=== PATIENT | male | born 1950 | race American Indian/Alaskan Native ===

== ENCOUNTER 2018-10-13 19:24 | Observation (INO) | payer MEDICARE ==
--- NOTE | 2018-10-13 19:37 | Event Note ---
ED Screening Note Date of service: 10/13/18 Time: 19:33 ED Screening Note: 68 y/o male comes in for 1 week of chest pain. Hx/o DM HTN Patient to be seen in the Main. This initial assessment/diagnostic orders/clinical plan/treatment(s) is/are subject to change based on patients health status, clinical progression and re- assessment by fellow clinical providers in the ED. Further treatment and workup at subsequent clinical providers discretion. Patient/guardian urged not to elope from the ED as their condition may be serious if not clinically assessed and managed. Initial orders include:
[2018-10-13 20:32] LABS: Basophils # (Auto) 0.1 K/mm3 (0.0-0.1); Eosinophils % (Auto) 0.7 % (0.0-4.3); Hematocrit 29.5 % (35.5-45.6); Lymphocytes % (Auto) 29.7 % (13.4-35.0); Mean Corpuscular HGB Conc 34 % (32-34); Mean Corpuscular Volume 91 fl (84-94); Monocytes # (Auto) 0.5 K/mm3 (0.0-0.8); Monocytes % (Auto) 7.3 % (0.0-7.3); Platelet Count 374 K/mm3 (140-440); Red Blood Count 3.24 M/mm3 (3.65-5.03); Red Cell Distribution Width 17.5 % (13.2-15.2)
--- NOTE | 2018-10-13 20:36 | Emergency Department Report ---
ED Chest Pain HPI - General Chief Complaint: Chest Pain Stated Complaint: SHOULDER PAIN Time Seen by Provider: 10/13/18 20:28 Source: patient, EMS Mode of arrival: Wheelchair Limitations: Physical Limitation - History of Present Illness Initial Comments: Patient is a 68-year-old male that presents emergency with complaints of chest pain and left shoulder pain. Patient states that his shoulder pain started one week ago and is in the left shoulder radiates down his left arm. Patient states 3 days ago his chest pain started. Patient states his chest pain and shoulder better with rest and worse with exertion and movement. Patient states the pain occurs chest and left shoulder are tender to 10. Patient states for his left shoulder he saw his primary care 2 days ago and had an x-ray and only showed arthritis. Patient states he has had shortness of breath but is better since he is resting in bed.. Patient states he had dizziness and nausea while sitting on the waiting room but that has resolved. Patient has a external fixator to the left lower extremity secondary to a fracture to the lower leg. MD Complaint: chest pain -: Sudden Onset: during rest Pain Location: substernal, left chest Pain Radiation: LUE Severity: severe Severity scale (0 -10): 10 Quality: sharp Consistency: constant Improves With: rest Worsens With: exertion, palpation, movement re: nausea, dyspnea. denies: vomting, diaphoresis, sense of impending doom Other Symptoms: denies: cough, fever, syncope, rash, acid taste in mouth, leg swelling, palpitations, burping Treatments Prior to Arrival: none Aspirin use within the Past 7 Days: (0) No - Related Data On Oral Contraceptives: No Allergies Allergy/AdvReac Type Severity Reaction Status Date / Time sulfamethoxazole Allergy Itching Verified 10/13/18 19:30 [From Bactrim] trimethoprim [From Bactrim] Allergy Itching Verified 10/13/18 19:30 Heart Score - HEART Score History: Moderately suspicious EKG: Normal Age: > 65 Risk factors: 1-2 risk factors Troponin: < normal limit HEART Score: 4 ED Review of Systems ROS: Stated complaint: SHOULDER PAIN Other details as noted in HPI Constitutional: denies: chills, fever Eyes: denies: eye pain, eye discharge, vision change ENT: denies: ear pain, throat pain Respiratory: shortness of breath. denies: cough, wheezing Cardiovascular: chest pain. denies: palpitations Endocrine: no symptoms reported Gastrointestinal: denies: abdominal pain, nausea, diarrhea Genitourinary: denies: urgency, dysuria Musculoskeletal: denies: back pain, joint swelling, arthralgia Skin: denies: rash, lesions Neurological: denies: headache, weakness, paresthesias Psychiatric: denies: anxiety, depression Hematological/Lymphatic: denies: easy bleeding, easy bruising ED Past Medical Hx - Past Medical History Previous Medical History?: Yes Hx Hypertension: Yes Hx Diabetes: Yes Hx Renal Disease: Yes - Surgical History Past Surgical History?: Yes Additional Surgical History: left lower leg, neck - Family History Family history: no significant - Social History Smoking Status: Current Every Day Smoker Substance Use Type: None ED Physical Exam - General Limitations: Physical Limitation General appearance: alert, in no apparent distress - Head Head exam: Present: atraumatic, normocephalic - Eye Eye exam: Present: normal appearance - ENT ENT exam: Present: mucous membranes moist - Neck Neck exam: Present: normal inspection - Respiratory Respiratory exam: Present: normal lung sounds bilaterally. Absent: respiratory distress, chest wall tenderness - Cardiovascular Cardiovascular Exam: Present: regular rate, normal rhythm. Absent: systolic murmur, diastolic murmur, rubs, gallop - GI/Abdominal GI/Abdominal exam: Present: soft, normal bowel sounds - Rectal Rectal exam: Present: deferred - Extremities Exam Extremities exam: Present: normal inspection, tenderness (tenderness to palpation to left shoulder) - Back Exam Back exam: Present: normal inspection - Neurological Exam Neurological exam: Present: alert, oriented X3 - Psychiatric Psychiatric exam: Present: normal affect, normal mood - Skin Skin exam: Present: warm, dry, intact, normal color. Absent: rash ED Course Vital Signs 10/13/18 10/13/18 10/13/18 19:29 19:31 20:00 Temperature 98.0 F 98.0 F Pulse Rate 99 H 99 H 92 H Respiratory 18 16 16 Rate Blood Pressure 155/119 155/119 129/95 O2 Sat by Pulse 100 100 100 Oximetry 10/13/18 20:15 Temperature Pulse Rate 93 H Respiratory 22 Rate Blood Pressure 154/81 O2 Sat by Pulse 100 Oximetry - Reevaluation(s) Reevaluation #1: Patient will have a nuclear scan done due to the fact the patient has a recent orthopedic surgery and complaints of chest pain shortness of breath. Patient will also be given pain medications and Zofran for complaints of chest pain and nausea. 10/13/18 21:09 Reevaluation #2: I discussed all results with patient. I discussed plan of care with patient. P jim will be admitted to the hospitalist service to rule out ACS. Patient agrees with plan of care 10/13/18 22:55 - Consultations Consultation #1: Hospitalist consult for admission. Hospitalist to admit patient and assume care of patient. 10/13/18 22:55 DIANA score - Diana Score Age > 65: (1) Yes Aspirin use within the Past 7 Days: (0) No 3 or more CAD Risk Factors: (0) No 2 or more Angina events in past 24 hrs: (1) Yes Known CAD with more than 50% Stenosis: (0) No Elevated Cardiac Markers: (0) No ST Deviation Greater than 0.5mm: (0) No DIANA Score: 2 ED Medical Decision Making - Lab Data Result diagrams: 10/13/18 19:39 10/13/18 19:39 - EKG Data -: EKG Interpreted by Sc EKG shows normal: sinus rhythm, axis, intervals, QRS complexes, ST-T waves Rate: normal - Radiology Data Radiology results: report reviewed CHEST 1 VIEW INDICATION / CLINICAL INFORMATION: Chest Pain. COMPARISON: None available. FINDINGS: SUPPORT DEVICES: None. HEART / MEDIASTINUM: No significant abnormality. LUNGS / PLEURA: No significant pulmonary or pleural abnormality. No pneumothorax. ADDITIONAL FINDINGS: No significant additional findings. IMPRESSION: 1. No acute findings. Indication: Chest pain, shortness of breath. COMPARISON: Chest radiograph, 10/13/2018 TECHNICAL DATA: Inhaled administration followed by immediate static images of chest in multiple projections coordinated with breathing instructions. Followed by immediate static images of chest in multiple projections post I.V. injection. 24.9 millicuries of 133 Xenon is administered by inhalation. Pulmonary wash-in, equilibrium, and washout phases are performed. Then, 4.88 millicuries of 99m Tc MAA is administered intravenously. FINDINGS: The ventilation scan is normal without evidence of delayed washout. The perfusion scan demonstrates homogeneous uptake without evidence of segmental or subsegmental defects. IMPRESSION: Normal lung scan. - Medical Decision Making Patient is a 68-year-old male that presents with left shoulder pain and chest pain. Patient shoulder pain is a week old and chest pain started 4-5 days ago. Patient also initially complained of shortness of breath and nausea but states that those resolved after resting in the ER. Patient has an external fixator on his left lower extremity place by [facility] [place]. Patient had a nuclear scan done to rule out PE. Patient's scan was negative. Patient's chest x-ray negative. Patient's EKG normal. Patient's initial cardiac workup negative. Patient admitted to the hospitalist service. - Differential Diagnosis chest pain. ACS. Shortness of breath. Nausea. PE Critical Care Time: Yes Critical care attestation.: If time is entered above; I have spent that time in minutes in the direct care of this critically ill patient, excluding procedure time. Critical Care Time: 35 minutes ED Disposition Clinical Impression: SOB (shortness of breath), Nausea Chest pain Qualifiers: Chest pain type: unspecified Qualified Code(s): R07.9 - Chest pain, unspecified Left shoulder pain Qualifiers: Chronicity: acute Qualified Code(s): M25.512 - Pain in left shoulder Disposition: DC-09 OP ADMIT IP TO THIS HOSP Is pt being admited?: Yes Does the pt Need Aspirin: No Condition: Critical Time of Disposition: 22:56
--- NOTE | 2018-10-13 20:50 | XRay Report ---
CHEST 1 VIEW INDICATION / CLINICAL INFORMATION: Chest Pain. COMPARISON: None available. FINDINGS: SUPPORT DEVICES: None. HEART / MEDIASTINUM: No significant abnormality. LUNGS / PLEURA: No significant pulmonary or pleural abnormality. No pneumothorax. ADDITIONAL FINDINGS: No significant additional findings. IMPRESSION: 1. No acute findings. Signer Name: Olivia Izquierdo MD Signed: 10/13/2018 8:46 PM Workstation Name: [id number]
[2018-10-13 21:04] LABS: BUN/Creatinine Ratio 14; Blood Urea Nitrogen 23 mg/dL (9-20); Calcium 9.8 mg/dL (8.4-10.2)
[2018-10-13 21:05] LABS: Alanine Aminotransferase 7 units/L (7-56); Albumin 3.6 g/dL (3.9-5); Hemolysis Index 4
[2018-10-13] MEDS ORDERED: ZOFRAN IV ONE (21:07)
[2018-10-13] MEDS ORDERED: MORPHINE IV ONE (21:07)
--- NOTE | 2018-10-13 22:15 | Nuclear Medicine Report ---
Indication: Chest pain, shortness of breath. COMPARISON: Chest radiograph, 10/13/2018 TECHNICAL DATA: Inhaled administration followed by immediate static images of chest in multiple projections coordin ed with breathing instructions. Followed by immediate static images of chest in multiple projections post I.V. injection. 24.9 millicuries of 133 Xenon is administered by inhalation. Pulmonary wash-in, equilibrium, and washout phases are performed. Then, 4.88 millicuries of 99m Tc MA A is administered intravenously. FINDINGS: The ventilation scan is normal without evidence of delayed washout. The perfusion scan demonstrates h omogeneous uptake without evidence of segmental or subsegmental defects. IMPRESSION: Normal lung scan. Signer Name: Olivia Izquierdo MD Signed: 10/13/2018 10:11 PM Workstation Name: [id number]
[2018-10-13] MEDS ORDERED: ZOFRAN IV PRN (23:05)
[2018-10-13] MEDS ORDERED: PROVENTIL IH PRN (23:05)
[2018-10-13] MEDS ORDERED: D50W (25GM) Syringe IV PRN (23:07)
[2018-10-13] MEDS ORDERED: SODIUM CHLORIDE FLUSH SYRINGE 10 ML IV PRN (23:07)
[2018-10-13] MEDS ORDERED: TYLENOL PO PRN (23:07)
[2018-10-13] MEDS ORDERED: NITROSTAT SL PRN (23:09)
--- NOTE | 2018-10-13 23:16 | History and Physical Report ---
History of Present Illness Date of examination: 10/13/18 Date of admission: 10/13/2018 Chief complaint: Chest pain History of present illness: 68-year-old -[place] male who is a current tobacco pipe smoker with history of hypertension, diabetes, chronic kidney disease, left lower leg fracture s/p external fixator presents [facility] ED with complaints of left shoulder pain that radiates to left chest and left lower extremity. Patient states that he's been experiencing left shoulder pain with past week. Approximately 3 days ago he started experiencing chest pain associated with shoulder pain. The shoulder pain radiates to left side of chest and left upper extremity. He went to his PCP 2 days ago regarding his shoulder pain. X-ray was done which showed a rthritis. His pain has continued to progressively worsen and he started experiencing shortness of breath with exertion. He rates his pain 9/10 and describes it as sharp. Patient states that he usually gets all his care at [place], and was scheduled to have his external fixator removed tomorrow. Admits: Dizziness and nausea Denies: Emesis, diarrhea, cough, hemoptysis, fever, or headache Past History Past Medical History: diabetes, hypertension, other (left lower extremity fracture) Past Surgical History: Other (left lower extremity external fixator) Social history: smoking (current every day smoker, smokes tobacco in pipe) Family history: no significant family history Medications and Allergies Allergies Allergy/AdvReac Type Severity Reaction Status Date / Time sulfamethoxazole Allergy Itching Verified 10/13/18 19:30 [From Bactrim] trimethoprim [From Bactrim] Allergy Itching Verified 10/13/18 19:30 Active Meds: Active Medications Acetaminophen (Tylenol) 650 mg PO Q4H PRN PRN Reason: Pain MILD(1-3)/Fever >100.5/CHAPMAN Albuterol (Proventil) 2.5 mg IH Q4HRT PRN PRN Reason: Shortness Of Breath Aspirin (Baby Aspirin) 81 mg PO QDAY ANGELIKA Atorvastatin Calcium (Lipitor) 40 mg PO QHS [facility] Dextrose (D50w (25gm) Syringe) 50 ml IV PRN PRN PRN Reason: Hypoglycemia Enoxaparin Sodium (Lovenox) 40 mg SUB-Q QDAY@2200 ANGELIKA Hydromorphone HCl (Dilaudid) 0.5 mg IV Q3H PRN PRN Reason: Pain , Severe (7-10) Sodium Chloride (Nacl 0.9% 1000 Ml) 1,000 mls @ 100 mls/hr IV DIRECT ANGELIKA Insulin Human Regular (Humulin R) 0 units SUB-Q Q6HR ANGELIKA; Protocol Morphine Sulfate (Morphine) 2 mg IV Q4H PRN PRN Reason: Pain, Moderate (4-6) Nicotine (Habitrol) 14 mg TD QDAY ANGELIKA Nitroglycerin (Nitrostat) 0.4 mg SL Q5M PRN PRN Reason: Chest Pain Ondansetron HCl (Zofran) 4 mg IV Q8H PRN PRN Reason: Nausea And Vomiting Sodium Chloride (Sodium Chloride Flush Syringe 10 Ml) 10 ml IV BID ANGELIKA Sodium Chloride (Sodium Chloride Flush Syringe 10 Ml) 10 ml IV PRN PRN PRN Reason: LINE FLUSH Review of Systems All systems: negative (reviewed in no additional remarkable complaints except as noted below) Cardiovascular: chest pain (radiation to left shoulder and left upper extremity), shortness of breath Respiratory: shortness of breath Musculoskeletal: fractures, other (lower extremity fracture, currently in left lower extremity external fixator) Exam - Physical Exam Narrative exam: Physical exam General appearance: Present: No acute distress, alert and oriented 3, well- developed, -[place] older adult male - EENT Eyes: Present: PERRL, EOM intact ENT: hearing intact, poor dentition - Neck Neck: Present: supple, normal ROM - Respiratory Respiratory effort: Non-labored Respiratory: Clear throughout - Cardiovascular Heart rate: 96 (bpm) Rhythm: Sinus rhythm Heart Sounds: Present: S1 & S2. Absent: rub, click - Extremities Extremities: no ischemia, pulses intact, abnormal (left lower extremity in external fixator) - Peripheral Assessment Peripheral Pulses: within normal limits - Abdominal General gastrointestinal: soft, non-tender, normal bowel sounds - Integumentary Integumentary: Present: warm, dry - Musculoskeletal Musculoskeletal: Able to move all extremities, limited mobility left lower extremity d/t external fixator -Neurological Neurological: CN II-XII intact - Psychiatric Psychiatric: cooperative - Constitutional Vitals: Temp Pulse Resp BP Pulse Ox 98.0 F 93 H 22 154/81 100 10/13/18 19:31 10/13/18 20:15 10/13/18 20:15 10/13/18 20:15 10/13/18 20:15 Results - Labs CBC & Chem 7: 10/13/18 19:39 10/13/18 19:39 Labs: Laboratory Last Values WBC 6.6 K/mm3 (4.5-11.0) 10/13/18 19:39 RBC 3.24 M/mm3 (3.65-5.03) L 10/13/18 19:39 Hgb 10.0 gm/dl (11.8-15.2) L 10/13/18 19:39 Hct 29.5 % (35.5-45.6) L 10/13/18 19:39 MCV 91 fl (84-94) 10/13/18 19:39 MCH 31 pg (28-32) 10/13/18 19:39 MCHC 34 % (32-34) 10/13/18 19:39 RDW 17.5 % (13.2-15.2) H 10/13/18 19:39 Plt Count 374 K/mm3 (140-440) 10/13/18 19:39 Lymph % (Auto) 29.7 % (13.4-35.0) 10/13/18 19:39 [place] % (Auto) 7.3 % (0.0-7.3) 10/13/18 19:39 Eos % (Auto) 0.7 % (0.0-4.3) 10/13/18 19:39 Baso % (Auto) 2.0 % (0.0-1.8) H 10/13/18 19:39 Lymph # 2.0 K/mm3 (1.2-5.4) 10/13/18 19:39 [place] # 0.5 K/mm3 (0.0-0.8) 10/13/18 19:39 Eos # 0.0 K/mm3 (0.0-0.4) 10/13/18 19:39 Baso # 0.1 K/mm3 (0.0-0.1) 10/13/18 19:39 Seg Neutrophils % 60.3 % (40.0-70.0) 10/13/18 19:39 Seg Neutrophils # 4.0 K/mm3 (1.8-7.7) 10/13/18 19:39 Sodium 134 mmol/L (137-145) L 10/13/18 19:39 Potassium 4.5 mmol/L (3.6-5.0) 10/13/18 19:39 Chloride 96.1 mmol/L (98-107) L 10/13/18 19:39 Carbon Dioxide 22 mmol/L (22-30) 10/13/18 19:39 20 mmol/L 10/13/18 19:39 BUN 23 mg/dL (9-20) H 10/13/18 19:39 1.6 mg/dL (0.8-1.5) H 10/13/18 19:39 Estimated GFR 53 ml/min 10/13/18 19:39 14 % 10/13/18 19:39 Glucose 148 mg/dL (75-100) H 10/13/18 19:39 Calcium 9.8 mg/dL (8.4-10.2) 10/13/18 19:39 0.50 mg/dL (0.1-1.2) 10/13/18 19:39 AST 19 units/L (5-40) 10/13/18 19:39 ALT 7 units/L (7-56) 10/13/18 19:39 131 units/L (35-129) H 10/13/18 19:39 < 0.010 ng/mL (0.00-0.029) 10/13/18 19:39 8.7 g/dL (6.3-8.2) H 10/13/18 19:39 3.6 g/dL (3.9-5) L 10/13/18 19:39 0.7 % 10/13/18 19:39 - Imaging and Cardiology Chest x-ray: report reviewed (LUNGS / PLEURA: No significant pulmonary or pleural abnormality. No pneumothorax. ), image reviewed Imaging and Cardiology: V/Q Scan: FINDINGS: The ventilation scan is normal without evidence of delayed washout. The perfusion scan demonstrates homogeneous uptake without evidence of segmental or subsegmental defects. IMPRESSION: Normal lung scan. Assessment and Plan Assessment and plan: 68-year-old -[place] male who is a current height smoker with history of hypertension, diabetes, chronic kidney disease, left lower leg fracture s/p external fixator presents [facility] ED with complaints of left shoulder pain that radiates to left chest and left lower extremity. 1. Acute Chest Pain -Pain mgmt -Continuous monitor monitoring -EKG when necessary -Albuterol when necessary for shortness of breath 2. R/O ACS -CXR unrevealing for acute pulmonary abnormalities -EKG revealed acute ischemic abnormalities -Moderately suspicious cardiac risk factors -Troponin negative 1, continue to trend -Echocardiogram and Lexiscan pending -Start ASA 81 mg daily, Lipitor 40 mg daily at bedtime 3. ROYAL -History of CKD ??2 -Baseline unknown -Creatinine 1.6 on admission with GFR 53 -Avoid nephrotoxic agents; renal dose meds -Hydrate with IVF -Nephrology consulted 4. Anemia -Hgb on admission 10.0 -no s/s of active bleeding -Monitor Hgb; transfuse prn 5. HTN -Monitor BP -Resume home hypertensive metastases to optimize BP; medication reconciliation pending -IV hydralazine when necessary 6. DM2 with neuropathy -Currently not on any anti-hyperglycemic meds, on diet and lifestyle modification -Hemoglobin A1c pending -POC BG Monitoring -SSI Coverage -Will resume gabapentin once medication reconciliation was completed 7. Tobacco Abuse -Current everyday tobacco pipe smoker -Counseled for cessation -Ordered nicotine patch 8. Hx orthopedic surgery -Left lower extremity fracture -External fixator to left lower extremity -Complains of shortness of breath in patient with recent orthopedic surgery -VQ scan negative for PE 9. DVT PPX -on Lovenox -on SCD's Advance Directives: No VTE prophylaxis?: Chemical Plan of care discussed with patient/family: Yes
[2018-10-13] MEDS ORDERED: APRESOLINE IV PRN (23:47)
[2018-10-14] MEDS ORDERED: DILAUDID ONE ×3 (00:23→09:11)
[2018-10-14] MEDS: DILAUDID IV PRN ×4 (00:27→18:26)
[2018-10-14 05:38] LABS: Basophils % (Auto) 0.3 % (0.0-1.8); Eosinophils # (Auto) 0.1 K/mm3 (0.0-0.4); Eosinophils % (Auto) 1.4 % (0.0-4.3); Hematocrit 28.2 % (35.5-45.6); Hemoglobin 9.2 gm/dl (11.8-15.2); Lymphocytes # (Auto) 2.1 K/mm3 (1.2-5.4); Lymphocytes % (Auto) 42.2 % (13.4-35.0); Mean Corpuscular HGB Conc 33 % (32-34); Mean Corpuscular Volume 91 fl (84-94); Monocytes # (Auto) 0.5 K/mm3 (0.0-0.8); Monocytes % (Auto) 9.7 % (0.0-7.3); Platelet Count 327 K/mm3 (140-440); Red Blood Count 3.09 M/mm3 (3.65-5.03); Red Cell Distribution Width 17.5 % (13.2-15.2)
[2018-10-14 06:12] LABS: Calcium 9.5 mg/dL (8.4-10.2)
[2018-10-14] MEDS: HumuLIN R SUB-Q SCH ×4 (06:20→18:18)
[2018-10-14] MEDS ORDERED: NITRO-BID 2% TP ONE ×2 (06:25→10:15)
[2018-10-14] MEDS: NITRO-BID 2% TP SCH ×4 (06:25→18:17)
[2018-10-14 08:32] LABS: Bilirubin,Urine NEG (Negative); Blood,Urine NEG (Negative); Color,Urine Yellow (Yellow); Urobilinogen,Urine < 2.0 mg/dL (<2.0)
[2018-10-14 08:34] LABS: Amphetamine Screen,Urine PRESUMPTIVE NEGATIVE; Benzodiazepines Screen,Urine PRESUMPTIVE NEGATIVE; Cannabinoid Screen,Urine PRESUMPTIVE NEGATIVE; Cocaine Screen,Urine PRESUMPTIVE NEGATIVE; Methadone Screen,Urine PRESUMPTIVE NEGATIVE; Opiate Screen,Urine PRESUMPTIVE NEGATIVE
[2018-10-14] MEDS: SODIUM CHLORIDE FLUSH SYRINGE 10 ML IV SCH ×2 (10:06→22:18)
[2018-10-14] MEDS ORDERED: NORVASC ONE (10:15)
[2018-10-14] MEDS ORDERED: BABY ASPIRIN ONE (10:15)
[2018-10-14] MEDS: BABY ASPIRIN PO SCH (10:17)
[2018-10-14] MEDS: NORVASC PO SCH (10:18)
[2018-10-14] MEDS: HABITROL TD SCH (10:18)
--- NOTE | 2018-10-14 10:30 | Progress Note ---
Assessment and Plan Assessment and plan: 68-year-old male patient with multiple medical problems was admitted chest pain, scheduled for stress test today. The test was rescheduled for tomorrow --Chest pain; rule out acute coronary syndrome Serial cardiac enzymes, continue current cardiac medications Echocardiogram, stress test to rule out ischemia Abnormal EKG , Cardiology consultation Stress test was rescheduled for tomorrow --Negative VQ scan for PE, negative DVT --Acute kidney injury; vasomotor nephropathy Gentle hydration, monitor renal function, avoid nephrotoxins Nephrology evaluation --Hypertension; moderate control Continue current antihypertensives, when necessary medications --Type 2 diabetes mellitus; Accu-Chek sliding scale coverage and ADA diet Insulin as needed, check hemoglobin A1c --Diabetic neuropathy; supportive care Gabapentin --Ongoing tobacco use; smoking cessation counseling Nicotine patch as needed --History of left lower extremity fracture;s/p surgery Supportive care, patient will follow up with his orthopedic surgeon Upon discharge --DVT prophylaxis on Lovenox --Full code Monitor closely and adjust the management as needed Disposition; follow stress test if negative and patient is stable May be discharged home tomorrow History Interval history: Patient seen and examined medical records reviewed Admitted with chest pain, scheduled for stress test which was rescheduled For tomorrow Patient feels better mild intermittent chest pain Denies shortness of breath, vital signs noted Hospitalist Physical - Constitutional Vitals: Temp Pulse Resp BP Pulse Ox 98.0 F 84 16 141/78 97 10/13/18 19:31 10/14/18 08:24 10/14/18 08:24 10/14/18 10:18 10/14/18 08:24 General appearance: Present: no acute distress, well-nourished - EENT Eyes: Present: PERRL, EOM intact - Neck Neck: Present: supple, normal ROM - Respiratory Respiratory effort: normal Respiratory: bilateral: diminished, negative: rales, rhonchi, wheezing - Cardiovascular Rhythm: regular Heart Sounds: Present: S1 & S2 - Extremities Extremities: no ischemia, No edema - Abdominal General gastrointestinal: soft, non-tender, non-distended, normal bowel sounds - Integumentary Integumentary: Present: clear, warm - Psychiatric Psychiatric: appropriate mood/affect, cooperative - Neurologic Neurologic: CNII-XII intact, moves all extremities Results - Labs CBC & Chem 7: 10/14/18 05:04 07/22/19 05:04 Labs: Laboratory Last Values WBC 5.0 K/mm3 (4.5-11.0) 10/14/18 05:04 RBC 3.09 M/mm3 (3.65-5.03) L 10/14/18 05:04 Hgb 9.2 gm/dl (11.8-15.2) L 10/14/18 05:04 Hct 28.2 % (35.5-45.6) L 10/14/18 05:04 MCV 91 fl (84-94) 10/14/18 05:04 MCH 30 pg (28-32) 10/14/18 05:04 MCHC 33 % (32-34) 10/14/18 05:04 RDW 17.5 % (13.2-15.2) H 10/14/18 05:04 Plt Count 327 K/mm3 (140-440) 10/14/18 05:04 Lymph % (Auto) 42.2 % (13.4-35.0) H 10/14/18 05:04 Morton % (Auto) 9.7 % (0.0-7.3) H 10/14/18 05:04 Eos % (Auto) 1.4 % (0.0-4.3) 10/14/18 05:04 Baso % (Auto) 0.3 % (0.0-1.8) 10/14/18 05:04 Lymph # 2.1 K/mm3 (1.2-5.4) 10/14/18 05:04 Morton # 0.5 K/mm3 (0.0-0.8) 10/14/18 05:04 Eos # 0.1 K/mm3 (0.0-0.4) 10/14/18 05:04 Baso # 0.0 K/mm3 (0.0-0.1) 10/14/18 05:04 Seg Neutrophils % 46.4 % (40.0-70.0) 10/14/18 05:04 Seg Neutrophils # 2.3 K/mm3 (1.8-7.7) 10/14/18 05:04 Sodium 137 mmol/L (137-145) 10/14/18 05:04 Potassium 4.5 mmol/L (3.6-5.0) 10/14/18 05:04 Chloride 99.1 mmol/L (98-107) 10/14/18 05:04 Carbon Dioxide 25 mmol/L (22-30) 10/14/18 05:04 17 mmol/L 10/14/18 05:04 BUN 25 mg/dL (9-20) H 10/14/18 05:04 1.6 mg/dL (0.8-1.5) H 10/14/18 05:04 Estimated GFR 53 ml/min 10/14/18 05:04 16 % 10/14/18 05:04 Glucose 154 mg/dL (75-100) H 10/14/18 05:04 POC Glucose 147 (70-105) H 10/14/18 06:23 5.7 % (4-6) 10/13/18 19:39 Calcium 9.5 mg/dL (8.4-10.2) 10/14/18 05:04 0.50 mg/dL (0.1-1.2) 10/13/18 19:39 AST 19 units/L (5-40) 10/13/18 19:39 ALT 7 units/L (7-56) 10/13/18 19:39 131 units/L (35-129) H 10/13/18 19:39 < 0.010 ng/mL (0.00-0.029) 10/14/18 05:04 8.7 g/dL (6.3-8.2) H 10/13/18 19:39 3.6 g/dL (3.9-5) L 10/13/18 19:39 0.7 % 10/13/18 19:39 Yellow (Yellow) 10/14/18 08:00 Clear (Clear) 10/14/18 08:00 5.0 (5.0-7.0) 10/14/18 08:00 Ur Specific [place] 1.017 (1.003-1.030) 10/14/18 08:00 100 mg/dl mg/dL (Negative) 10/14/18 08:00 Neg mg/dL (Negative) 10/14/18 08:00 Neg mg/dL (Negative) 10/14/18 08:00 Neg (Negative) 10/14/18 08:00 Neg (Negative) 10/14/18 08:00 Neg (Negative) 10/14/18 08:00 < 2.0 mg/dL (<2.0) 10/14/18 08:00 Ur Leukocyte Esterase Neg (Negative) 10/14/18 08:00 3.0 /HPF (0.0-6.0) 10/14/18 08:00 3.0 /HPF (0.0-6.0) 10/14/18 08:00 U Epithel Cells (Auto) 2.0 /HPF (0-13.0) 10/14/18 08:00 Presumptive negative 10/14/18 08:00 Presumptive negative 10/14/18 08:00 Ur Barbiturates Screen Presumptive negative 10/14/18 08:00 Ur Phencyclidine Scrn Presumptive negative 10/14/18 08:00 Ur Amphetamines Screen Presumptive negative 10/14/18 08:00 U Benzodiazepines Scrn Presumptive negative 10/14/18 08:00 Presumptive negative 10/14/18 08:00 U Marijuana (THC) Screen Presumptive negative 10/14/18 08:00 Disclamer 10/14/18 08:00 Active Medications - Current Medications Current Medications: Generic Name Dose Route Start Last Admin Trade Name Freq PRN Reason Stop Dose Admin Acetaminophen 650 mg 10/13/18 23:07 Tylenol PO Q4H PRN Pain MILD(1-3)/Fever >100.5/CHAPMAN Albuterol 2.5 mg 10/13/18 23:05 Proventil IH Q4HRT PRN Shortness Of Breath Amlodipine Besylate 10 mg 10/14/18 10:00 10/14/18 10:18 Norvasc PO 10 mg QDAY ANGELIKA Administration Aspirin 81 mg 10/14/18 10:00 10/14/18 10:17 Baby Aspirin PO 81 mg QDAY ANGELIKA Administration Atorvastatin Calcium 40 mg 10/14/18 22:00 Lipitor PO QHS ANGELIKA Dextrose 50 ml 10/13/18 23:07 D50w (25gm) Syringe IV PRN PRN Hypoglycemia Enoxaparin Sodium 40 mg 10/14/18 22:00 Lovenox SUB-Q QDAY@2200 ANGELIKA Hydralazine HCl 10 mg 10/13/18 23:47 Apresoline IV Q4HR PRN Blood Pressure Hydromorphone HCl 0.5 mg 10/13/18 23:05 10/14/18 09:15 Dilaudid IV 0.5 mg Q3H PRN Administration Pain , Severe (7-10) Sodium Chloride 1,000 mls @ 100 mls/hr 10/13/18 23:45 Nacl 0.9% 1000 Ml IV DIRECT [facility] Insulin Human Regular 0 units 10/14/18 00:00 10/14/18 06:20 Humulin R SUB-Q Not Given Q6HR [facility] Protocol Morphine Sulfate 2 mg 10/13/18 23:05 Morphine IV Q4H PRN Pain, Moderate (4-6) Nicotine 14 mg 10/14/18 10:00 10/14/18 10:18 Habitrol TD Not Given QDAY [facility] Nitroglycerin 0.4 mg 10/13/18 23:09 Nitrostat SL Q5M PRN Chest Pain Nitroglycerin 0.5 inch 10/14/18 06:00 10/14/18 10:18 Nitro-Bid 2% TP 0.5 inch QIDNTG [facility] Administration Protocol Ondansetron HCl 4 mg 10/13/18 23:05 Zofran IV Q8H PRN Nausea And Vomiting Sodium Chloride 10 ml 10/14/18 10:00 10/14/18 10:06 Sodium Chloride Flush Syringe 10 Ml IV 10 ml BID ANGELIKA Administration Sodium Chloride 10 ml 10/13/18 23:07 Sodium Chloride Flush Syringe 10 Ml IV PRN PRN LINE FLUSH
[2018-10-14] MEDS ORDERED: HumuLIN R ONE (11:42)
[2018-10-14] MEDS: MORPHINE IV PRN ×2 (11:46→15:56)
[2018-10-14] MEDS ORDERED: MORPHINE ONE (11:46)
--- NOTE | 2018-10-14 13:07 | Consultation ---
History of Present Illness - Reason for Consult Consult date: 10/14/18 acute renal failure - History of Present Illness This is a 68 y/o M with PMH of HTN, tobacco use, CKD (exact stage unknown), DM Type 2, Left lower leg fracture s/p external fixator about 3 months ago who presented to [facility] ED with c/o left shoulder pain radiating to his left chest down to his left upper extremity. Pt reports seeing his PCP about 2 days before admisssion for left shoulder pain and X Ray showed arthritis. On admission, SCr level was 1.6, today's SCr level 1.6. CXR showed no acute findings. We were consulted to evaluate this pt who has ROYAL. Pt reports being told by his PCP that his renal function was abnormal about 3 months ago and he was referred to a drop wire hanger, but he never saw a drop wire hanger as an outpatient. Pt states he saw his PCP last week and had lisinopril medication stopped due to his renal function. Pt denies NSAID use. Past History Past Medical History: diabetes, hypertension, other (left lower extremity fracture) Past Surgical History: Other (left lower extremity external fixator) Social history: smoking (current every day smoker, smokes tobacco in pipe) Family history: no significant family history Medications and Allergies Allergies Allergy/AdvReac Type Severity Reaction Status Date / Time sulfamethoxazole Allergy Itching Verified 10/13/18 19:30 [From Bactrim] trimethoprim [From Bactrim] Allergy Itching Verified 10/13/18 19:30 Home Medications Medication Instructions Recorded Confirmed Last Taken Type Gabapentin [Neurontin] 300 mg PO Q8HR 10/14/18 10/14/18 Unknown History amLODIPine [Norvasc] 10 mg PO DAILY 10/14/18 10/14/18 Unknown History Active Meds: Active Medications Acetaminophen (Tylenol) 650 mg PO Q4H PRN PRN Reason: Pain MILD(1-3)/Fever >100.5/CHAPMAN Albuterol (Proventil) 2.5 mg IH Q4HRT PRN PRN Reason: Shortness Of Breath Amlodipine Besylate (Norvasc) 10 mg PO QDAY [facility] Last Admin: 10/14/18 10:18 Dose: 10 mg Documented by: Aspirin (Baby Aspirin) 81 mg PO QDAY [facility] Last Admin: 10/14/18 10:17 Dose: 81 mg Documented by: Atorvastatin Calcium (Lipitor) 40 mg PO QHS [facility] Dextrose (D50w (25gm) Syringe) 50 ml IV PRN PRN PRN Reason: Hypoglycemia Enoxaparin Sodium (Lovenox) 40 mg SUB-Q QDAY@2200 [facility] Hydralazine HCl (Apresoline) 10 mg IV Q4HR PRN PRN Reason: Blood Pressure Hydromorphone HCl (Dilaudid) 0.5 mg IV Q3H PRN PRN Reason: Pain , Severe (7-10) Last Admin: 10/14/18 09:15 Dose: 0.5 mg Documented by: Sodium Chloride (Nacl 0.9% 1000 Ml) 1,000 mls @ 100 mls/hr IV DIRECT [facility] Insulin Human Regular (Humulin R) 0 units SUB-Q Q6HR [facility]; Protocol Last Admin: 10/14/18 11:37 Dose: 1 units Documented by: Morphine Sulfate (Morphine) 2 mg IV Q4H PRN PRN Reason: Pain, Moderate (4-6) Last Admin: 10/14/18 11:46 Dose: 2 mg Documented by: Nicotine (Habitrol) 14 mg TD QDAY [facility] Last Admin: 10/14/18 10:18 Dose: Not Given Documented by: Nitroglycerin (Nitrostat) 0.4 mg SL Q5M PRN PRN Reason: Chest Pain Nitroglycerin (Nitro-Bid 2%) 0.5 inch TP QIDNTG [facility]; Protocol Last Admin: 10/14/18 10:18 Dose: 0.5 inch Documented by: Ondansetron HCl (Zofran) 4 mg IV Q8H PRN PRN Reason: Nausea And Vomiting Sodium Chloride (Sodium Chloride Flush Syringe 10 Ml) 10 ml IV BID [facility] Last Admin: 10/14/18 10:06 Dose: 10 ml Documented by: Sodium Chloride (Sodium Chloride Flush Syringe 10 Ml) 10 ml IV PRN PRN PRN Reason: LINE FLUSH Exam - Vital Signs Vital signs: Vital Signs Temp Pulse Resp BP Pulse Ox 98.0 F 99 H 18 155/119 100 10/13/18 19:29 10/13/18 19:29 10/13/18 19:29 10/13/18 19:29 10/13/18 19:29 - General Appearance General appearance: well-developed EENT: ATNC Neck: Present: neck supple Respiratory: Clear to Ascultation Heart: regular, S1S2 Gastrointestinal: Present: normoactive bowel sounds. Absent: tenderness Integumentary: other (LLE with external fixator) Neurologic: alert and oriented x3 Musculoskeletal: Present: other (Left lower extremity with external fixator in place; no edema to RLE) Psychiatric: mood/affect appropriate, cooperative Results - Lab Results 10/14/18 05:04 10/14/18 05:04 Most recent lab results Calcium 9.5 mg/dL (8.4-10.2) 10/14/18 05:04 Assessment and Plan Chest Pain: - On ASA and statin - Echo and lexiscan pending - Cardiology on board, f/u recs Acute Kidney Injury possibly prerenal on underlying CKD, r/o obstruction: - Renal function reviewed, SCr level was 1.6 today, yesterday's SCr level was 1.6 - Exact SCr baseline unknown - Possible underlying CKD due to DM and HTN - On 0.9% NS infusion at 100 ml/hr - Obtain urine lytes/protein - UA [employer] - Obtain Renal US - Renally dose medications - Xiong Catheter: No - Renal plan d/w Dr Reyez Essential Hypertension: - Blood pressure stable on current regimen - Adjust medications as needed Anemia: - Possibly due to CKD - Obtain iron studies Diabetes Mellitus Type 2 diet controlled: - On SSI - As per primary team S/p Orthopedic surgery for LLE fracture with external fixator - Pt states having left lower extremity external fixator surgery about 3 months ago at [place] and was scheduled to have external fixator removed on 10/14/18 - As per primary - Follow up with Ortho as scheduled upon discharge
[2018-10-14] MEDS: NACL 0.9% 1000 ML 1,000 ML IV SCH (15:48)
[2018-10-14] MEDS ORDERED: LOVENOX SUB-Q SCH (22:00)
[2018-10-14] MEDS: NEURONTIN PO SCH (22:17)
[2018-10-15] MEDS: DILAUDID IV PRN ×4 (00:11→21:48)
[2018-10-15] MEDS: HumuLIN R SUB-Q SCH ×4 (00:15→17:44)
[2018-10-15] MEDS: NEURONTIN PO SCH ×3 (05:06→21:25)
[2018-10-15] MEDS: NACL 0.9% 1000 ML 1,000 ML IV SCH (05:11)
[2018-10-15] MEDS: NITRO-BID 2% TP SCH ×4 (05:16→18:02)
[2018-10-15 06:25] LABS: Hematocrit 29.1 % (35.5-45.6); Hemoglobin 9.6 gm/dl (11.8-15.2); Mean Corpuscular HGB Conc 33 % (32-34); Mean Corpuscular Volume 92 fl (84-94); Platelet Count 326 K/mm3 (140-440); Red Blood Count 3.16 M/mm3 (3.65-5.03); Red Cell Distribution Width 17.9 % (13.2-15.2)
[2018-10-15 07:34] LABS: Calcium 9.2 mg/dL (8.4-10.2)
[2018-10-15 08:19] LABS: Creatinine,Urine 113.1 mg/dL (0.1-20.0); Microalbumin/Creatinine Ratio 124.6 ug/mg
[2018-10-15] MEDS ORDERED: LEXISCAN IV ONE (08:37)
--- NOTE | 2018-10-15 08:56 | Ultrasound Report ---
ULTRASOUND RENAL INDICATION: ROYAL on CKD COMPARISON: No relevant prior imaging study available. FINDINGS: RIGHT KIDNEY: Size: 8.8 cm. Echogenicity: Mildly increased. Cortical thickness: Mildly thin. Stones: Small calculus is seen in the midportion. Hydronephrosis: None. Cyst or mass: None. LEFT KIDNEY: Size: 17.4 cm. Detail is low. Echogenicity: Moderately increased. Cortical thickness: Normal. Stones: None. Hydronephrosis: None. Cyst or mass: None. Urinary Bladder: No significant abnormality. Free Fluid: None. Additional Findings: None. IMPRESSION: Bilateral increased echogenicity of the cortex as can be seen with renal failure. Mild co rtical thinning on the right. No obstructive changes are seen. Signer Name: Wes Fox MD Signed: 10/15/2018 8:52 AM Workstation Name: [id number]
--- NOTE | 2018-10-15 11:37 | Progress Note ---
Assessment and Plan Chest Pain: - On ASA and statin - stress test today - Cardiology on board, f/u recs Acute Kidney Injury possibly prerenal on underlying CKD - slowly rising Cr - Exact SCr baseline unknown, possible underlying CKD due to DM and HTN - cont 0.9% NS infusion at 100 ml/hr - UA [place], renal US in negative for obstruction - Renally dose medications - Xiong Catheter: No Essential Hypertension: - Blood pressure stable on current regimen - Adjust medications as needed Anemia: - Possibly due to CKD - Obtain iron studies Diabetes Mellitus Type 2 diet controlled: - On SSI - As per primary team S/p Orthopedic surgery for LLE fracture with external fixator - Pt states having left lower extremity external fixator surgery about 3 months ago at [place] and was scheduled to have external fixator removed on 10/14/18 - As per primary - Follow up with Ortho as scheduled upon discharge Subjective Date of service: 10/15/18 Principal diagnosis: acute renal failure Interval history: patient was in stress test this AM Objective - Vital Signs Vital signs: Vital Signs - 12hr 10/15/18 10/15/18 10/15/18 00:11 04:19 09:18 Temperature 97.4 F L Pulse Rate 78 Respiratory 20 19 Rate Blood Pressure 124/77 144/82 O2 Sat by Pulse 98 Oximetry 10/15/18 10/15/18 10/15/18 09:24 10:16 10:19 Temperature Pulse Rate Respiratory Rate Blood Pressure 145/81 144/83 136/60 O2 Sat by Pulse Oximetry 10/15/18 10/15/18 10/15/18 10:21 10:22 10:24 Temperature Pulse Rate Respiratory Rate Blood Pressure 116/67 114/65 110/65 O2 Sat by Pulse Oximetry - Lab 10/15/18 05:17 10/15/18 05:17 Most recent lab results Calcium 9.2 mg/dL (8.4-10.2) 10/15/18 05:17 Phosphorus 3.70 mg/dL (2.5-4.5) 10/15/18 05:17 113.1 mg/dL (0.1-20.0) H 10/15/18 Unknown 29 mmol/L 10/15/18 Unknown 34 mg/dL (5-11.8) H 10/15/18 Unknown Medications & Allergies - Medications Allergies/Adverse Reactions: Allergies sulfamethoxazole [From Bactrim] Allergy (Verified 10/13/18 19:30) Itching trimethoprim [From Bactrim] Allergy (Verified 10/13/18 19:30) Itching Home Medications: Home Medications Medication Instructions Recorded Confirmed Last Taken Type Gabapentin [Neurontin] 300 mg PO Q8HR 10/14/18 10/14/18 Unknown History amLODIPine [Norvasc] 10 mg PO DAILY 10/14/18 10/14/18 Unknown History Active Medications: Generic Name Dose Route Start Last Admin Trade Name Freq PRN Reason Stop Dose Admin Acetaminophen 650 mg 10/13/18 23:07 Tylenol PO Q4H PRN Pain MILD(1-3)/Fever >100.5/CHAPMAN Albuterol 2.5 mg 10/13/18 23:05 Proventil IH Q4HRT PRN Shortness Of Breath Amlodipine Besylate 10 mg 10/14/18 10:00 10/14/18 10:18 Norvasc PO 10 mg QDAY ANGELIKA Administration Aspirin 81 mg 10/14/18 10:00 10/14/18 10:17 Baby Aspirin PO 81 mg QDAY ANGELIKA Administration Atorvastatin Calcium 40 mg 10/14/18 22:00 10/14/18 22:17 Lipitor PO 40 mg QHS ANGELIKA Administration Dextrose 50 ml 10/13/18 23:07 D50w (25gm) Syringe IV PRN PRN Hypoglycemia Enoxaparin Sodium 30 mg 10/15/18 22:00 Lovenox SUB-Q QDAY@2200 ANGELIKA Gabapentin 300 mg 10/14/18 22:00 10/15/18 05:06 Neurontin PO 300 mg Q8HR ANGELIKA Administration Hydralazine HCl 10 mg 10/13/18 23:47 Apresoline IV Q4HR PRN Blood Pressure Hydromorphone HCl 0.5 mg 10/13/18 23:05 10/15/18 00:11 Dilaudid IV 0.5 mg Q3H PRN Administration Pain , Severe (7-10) Sodium Chloride 1,000 mls @ 100 mls/hr 10/13/18 23:45 10/15/18 05:11 Nacl 0.9% 1000 Ml IV 100 mls/hr DIRECT ANGELIKA Administration Insulin Human Regular 0 units 10/14/18 00:00 10/15/18 00:15 Humulin R SUB-Q 4 units Q6HR ANGELIKA Administration Protocol Morphine Sulfate 2 mg 10/13/18 23:05 10/14/18 15:56 Morphine IV 2 mg Q4H PRN Administration Pain, Moderate (4-6) Nicotine 14 mg 10/14/18 10:00 10/14/18 10:18 Habitrol TD Not Given QDAY [facility] Nitroglycerin 0.4 mg 10/13/18 23:09 Nitrostat SL Q5M PRN Chest Pain Nitroglycerin 0.5 inch 10/14/18 06:00 10/15/18 05:16 Nitro-Bid 2% TP Not Given QIDNTG [facility] Protocol Ondansetron HCl 4 mg 10/13/18 23:05 Zofran IV Q8H PRN Nausea And Vomiting Sodium Chloride 10 ml 10/14/18 10:00 10/14/18 22:18 Sodium Chloride Flush Syringe 10 Ml IV 10 ml BID ANGELIKA Administration Sodium Chloride 10 ml 10/13/18 23:07 Sodium Chloride Flush Syringe 10 Ml IV PRN PRN LINE FLUSH
[2018-10-15] MEDS: BABY ASPIRIN PO SCH (12:15)
[2018-10-15] MEDS: NORVASC PO SCH (12:15)
[2018-10-15] MEDS: SODIUM CHLORIDE FLUSH SYRINGE 10 ML IV SCH ×2 (12:16→21:26)
[2018-10-15] MEDS: HABITROL TD SCH (12:16)
--- NOTE | 2018-10-15 16:44 | Progress Note ---
Assessment and Plan Assessment and plan: 68-year-old male patient with multiple medical problems was admitted chest pain, scheduled for stress test today. The test was rescheduled for tomorrow --Chest pain; s/p stress test pending report Serial cardiac enzymes, continue current cardiac medications Echocardiogram, 50-55%, Cardiology following --Negative VQ scan for PE, negative DVT --Acute kidney injury; vasomotor nephropathy Gentle hydration, monitor renal function, avoid nephrotoxins Nephrology evaluation --Hypertension; moderate control Continue current antihypertensives, when necessary medications --Type 2 diabetes mellitus; Accu-Chek sliding scale coverage and ADA diet Insulin as needed, check hemoglobin A1c --Diabetic neuropathy; supportive care Gabapentin --Ongoing tobacco use; smoking cessation counseling Nicotine patch as needed --History of left lower extremity fracture;s/p surgery Supportive care, patient will follow up with his orthopedic surgeon Upon discharge --DVT prophylaxis on Lovenox --Full code Monitor closely and adjust the management as needed Disposition; follow stress test if negative and patient is stable May be discharged home tomorrow History Interval history: Patient seen and examined medical records reviewed Underwent stress test today, awaiting test report Patient feels better denies chest pain or shortness of breath Vital signs noted Hospitalist Physical - Constitutional Vitals: Temp Pulse Resp BP Pulse Ox 97.7 F 92 H 18 133/77 98 10/15/18 11:43 10/15/18 13:12 10/15/18 14:00 10/15/18 13:12 10/15/18 11:43 General appearance: Present: no acute distress, well-nourished - EENT Eyes: Present: PERRL, EOM intact - Neck Neck: Present: supple, normal ROM - Respiratory Respiratory effort: normal Respiratory: bilateral: diminished, negative: rales, rhonchi, wheezing - Cardiovascular Rhythm: regular Heart Sounds: Present: S1 & S2 - Extremities Extremities: no ischemia, No edema - Abdominal General gastrointestinal: soft, non-tender, non-distended, normal bowel sounds - Integumentary Integumentary: Present: clear, warm - Psychiatric Psychiatric: appropriate mood/affect, cooperative - Neurologic Neurologic: CNII-XII intact, moves all extremities Results - Labs CBC & Chem 7: 10/15/18 05:17 10/15/18 05:17 Labs: Laboratory Last Values WBC 6.0 K/mm3 (4.5-11.0) 10/15/18 05:17 RBC 3.16 M/mm3 (3.65-5.03) L 10/15/18 05:17 Hgb 9.6 gm/dl (11.8-15.2) L 10/15/18 05:17 Hct 29.1 % (35.5-45.6) L 10/15/18 05:17 MCV 92 fl (84-94) 10/15/18 05:17 MCH 31 pg (28-32) 10/15/18 05:17 MCHC 33 % (32-34) 10/15/18 05:17 RDW 17.9 % (13.2-15.2) H 10/15/18 05:17 Plt Count 326 K/mm3 (140-440) 10/15/18 05:17 Lymph % (Auto) 42.2 % (13.4-35.0) H 10/14/18 05:04 [place] % (Auto) 9.7 % (0.0-7.3) H 10/14/18 05:04 Eos % (Auto) 1.4 % (0.0-4.3) 10/14/18 05:04 Baso % (Auto) 0.3 % (0.0-1.8) 10/14/18 05:04 Lymph # 2.1 K/mm3 (1.2-5.4) 10/14/18 05:04 [place] # 0.5 K/mm3 (0.0-0.8) 10/14/18 05:04 Eos # 0.1 K/mm3 (0.0-0.4) 10/14/18 05:04 Baso # 0.0 K/mm3 (0.0-0.1) 10/14/18 05:04 Seg Neutrophils % 46.4 % (40.0-70.0) 10/14/18 05:04 Seg Neutrophils # 2.3 K/mm3 (1.8-7.7) 10/14/18 05:04 Sodium 134 mmol/L (137-145) L 10/15/18 05:17 Potassium 4.1 mmol/L (3.6-5.0) 10/15/18 05:17 Chloride 97.4 mmol/L (98-107) L 10/15/18 05:17 Carbon Dioxide 22 mmol/L (22-30) 10/15/18 05:17 19 mmol/L 10/15/18 05:17 BUN 30 mg/dL (9-20) H 10/15/18 05:17 1.9 mg/dL (0.8-1.5) H 10/15/18 05:17 Estimated GFR 43 ml/min 10/15/18 05:17 16 % 10/15/18 05:17 Glucose 127 mg/dL (75-100) H 10/15/18 05:17 POC Glucose 168 (70-105) H 10/15/18 12:33 5.7 % (4-6) 10/13/18 19:39 Calcium 9.2 mg/dL (8.4-10.2) 10/15/18 05:17 Phosphorus 3.70 mg/dL (2.5-4.5) 10/15/18 05:17 Iron 34 ug/dL (49-181) L 10/15/18 05:17 TIBC 257 mcg/dL (250-450) 10/15/18 05:17 209 mg/dl (180-329) 10/15/18 05:17 176.1 ng/mL (13.0-400.0) 10/15/18 05:17 0.50 mg/dL (0.1-1.2) 10/13/18 19:39 AST 19 units/L (5-40) 10/13/18 19:39 ALT 7 units/L (7-56) 10/13/18 19:39 131 units/L (35-129) H 10/13/18 19:39 < 0.010 ng/mL (0.00-0.029) 10/14/18 11:47 8.7 g/dL (6.3-8.2) H 10/13/18 19:39 3.6 g/dL (3.9-5) L 10/13/18 19:39 0.7 % 10/13/18 19:39 PTH Intact 51.87 pg/mL (15-65) 10/15/18 05:17 Yellow (Yellow) 10/14/18 08:00 Clear (Clear) 10/14/18 08:00 5.0 (5.0-7.0) 10/14/18 08:00 Ur Specific [place]am 1.017 (1.003-1.030) 10/14/18 08:00 100 mg/dl mg/dL (Negative) 10/14/18 08:00 Neg mg/dL (Negative) 10/14/18 08:00 Neg mg/dL (Negative) 10/14/18 08:00 Neg (Negative) 10/14/18 08:00 Neg (Negative) 10/14/18 08:00 Neg (Negative) 10/14/18 08:00 < 2.0 mg/dL (<2.0) 10/14/18 08:00 Ur Leukocyte Esterase Neg (Negative) 10/14/18 08:00 3.0 /HPF (0.0-6.0) 10/14/18 08:00 3.0 /HPF (0.0-6.0) 10/14/18 08:00 U Epithel Cells (Auto) 2.0 /HPF (0-13.0) 10/14/18 08:00 113.1 mg/dL (0.1-20.0) H 10/15/18 Unknown 14.1 mg/dL (0.1-34.0) 10/15/18 Unknown Microalb/Creat Ratio 124.6 ug/mg 10/15/18 Unknown 29 mmol/L 10/15/18 Unknown 34 mg/dL (5-11.8) H 10/15/18 Unknown Presumptive negative 10/14/18 08:00 Presumptive negative 10/14/18 08:00 Ur Barbiturates Screen Presumptive negative 10/14/18 08:00 Ur Phencyclidine Scrn Presumptive negative 10/14/18 08:00 Ur Amphetamines Screen Presumptive negative 10/14/18 08:00 U Benzodiazepines Scrn Presumptive negative 10/14/18 08:00 Presumptive negative 10/14/18 08:00 U Marijuana (THC) Screen Presumptive negative 10/14/18 08:00 Disclamer 10/14/18 08:00 Active Medications - Current Medications Current Medications: Generic Name Dose Route Start Last Admin Trade Name Freq PRN Reason Stop Dose Admin Acetaminophen 650 mg 10/13/18 23:07 Tylenol PO Q4H PRN Pain MILD(1-3)/Fever >100.5/CHAPMAN Albuterol 2.5 mg 10/13/18 23:05 Proventil IH Q4HRT PRN Shortness Of Breath Amlodipine Besylate 10 mg 10/14/18 10:00 10/15/18 12:15 Norvasc PO 10 mg QDAY ANGELIKA Administration Aspirin 81 mg 10/14/18 10:00 10/15/18 12:15 Baby Aspirin PO 81 mg QDAY ANGELIKA Administration Atorvastatin Calcium 40 mg 10/14/18 22:00 10/14/18 22:17 Lipitor PO 40 mg QHS ANGELIKA Administration Dextrose 50 ml 10/13/18 23:07 D50w (25gm) Syringe IV PRN PRN Hypoglycemia Enoxaparin Sodium 30 mg 10/15/18 22:00 Lovenox SUB-Q QDAY@2200 ANGELIKA Gabapentin 300 mg 10/14/18 22:00 10/15/18 13:12 Neurontin PO 300 mg Q8HR ANGELIKA Administration Hydralazine HCl 10 mg 10/13/18 23:47 Apresoline IV Q4HR PRN Blood Pressure Hydromorphone HCl 0.5 mg 10/13/18 23:05 10/15/18 09:30 Dilaudid IV 0.5 mg Q3H PRN Administration Pain , Severe (7-10) Sodium Chloride 1,000 mls @ 100 mls/hr 10/13/18 23:45 10/15/18 05:11 Nacl 0.9% 1000 Ml IV 100 mls/hr DIRECT ANGELIKA Administration Insulin Human Regular 0 units 10/14/18 00:00 10/15/18 13:13 Humulin R SUB-Q 1 units Q6HR ANGELIKA Administration Protocol Morphine Sulfate 2 mg 10/13/18 23:05 10/14/18 15:56 Morphine IV 2 mg Q4H PRN Administration Pain, Moderate (4-6) Nicotine 14 mg 10/14/18 10:00 10/15/18 12:16 Habitrol TD Not Given QDAY ANGELIKA Nitroglycerin 0.4 mg 10/13/18 23:09 Nitrostat SL Q5M PRN Chest Pain Nitroglycerin 0.5 inch 10/14/18 06:00 10/15/18 13:12 Nitro-Bid 2% TP 0.5 inch QIDNTG ANGELIKA Administration Protocol Ondansetron HCl 4 mg 10/13/18 23:05 Zofran IV Q8H PRN Nausea And Vomiting Sodium Chloride 10 ml 10/14/18 10:00 10/15/18 12:16 Sodium Chloride Flush Syringe 10 Ml IV 10 ml BID ANGELIKA Administration Sodium Chloride 10 ml 10/13/18 23:07 Sodium Chloride Flush Syringe 10 Ml IV PRN PRN LINE FLUSH Nutrition/Malnutrition Assess - Dietary Evaluation Nutrition/Malnutrition Findings: Nutrition Notes Start: 10/14/18 10:57 Freq: Status: Active Protocol: Document 10/14/18 10:57 ANTIONE (Rec: 10/14/18 10:59 ANTIONE [email or web address]) Nutrition Notes Need for Assessment generated from: MD Order,Education Initial or Follow up Brief Note Current Diagnosis CKD(stage I-IV),Diabetes, Hypertension Other Pertinent Diagnosis Chest pain Current Diet NPO Labs/Tests A1C 5.7 Subjective/Other Information RD consulted for diet education. Pt in ED at this time. BP upon admission was 155/119. Nutrition Intervention Follow-Up By: 10/17/18 Additional Comments F/U: diet advancement, diet education needs (low Na)
--- NOTE | 2018-10-15 18:12 | Consultation ---
History of Present Illness Consult date: 10/15/18 Consult reason: chest pain History of present illness: The patient's a 68-year-old man history of hypertension and chronic kidney di sease. He presented to the hospital with atypical chest pain which she reported as left shoulder pain. He was seen by Hospital medicine, admitted for rule out [place]. EKG was a sinus rhythm with no acute ST or T wave or hemoptysis. Echocardiogram showed well-preserved left ventricular systolic function, ejection fraction 55%. He was ordered for a Lexiscan thallium stress test and cardiac consultation. Lexiscan has been completed, results pending. Past History Past Medical History: diabetes, hypertension, other (left lower extremity fracture) Past Surgical History: Other (left lower extremity external fixator) Social history: smoking (current every day smoker, smokes tobacco in pipe) Family history: no significant family history Medications and Allergies Allergies Allergy/AdvReac Type Severity Reaction Status Date / Time sulfamethoxazole Allergy Itching Verified 10/13/18 19:30 [From Bactrim] trimethoprim [From Bactrim] Allergy Itching Verified 10/13/18 19:30 Home Medications Medication Instructions Recorded Confirmed Last Taken Type Gabapentin [Neurontin] 300 mg PO Q8HR 10/14/18 10/14/18 Unknown History amLODIPine [Norvasc] 10 mg PO DAILY 10/14/18 10/14/18 Unknown History Active Meds: Active Medications Acetaminophen (Tylenol) 650 mg PO Q4H PRN PRN Reason: Pain MILD(1-3)/Fever >100.5/CHAPMAN Albuterol (Proventil) 2.5 mg IH Q4HRT PRN PRN Reason: Shortness Of Breath Amlodipine Besylate (Norvasc) 10 mg PO QDAY [facility] Last Admin: 10/15/18 12:15 Dose: 10 mg Documented by: Aspirin (Baby Aspirin) 81 mg PO QDAY [facility] Last Admin: 10/15/18 12:15 Dose: 81 mg Documented by: Atorvastatin Calcium (Lipitor) 40 mg PO QHS [facility] Last Admin: 10/14/18 22:17 Dose: 40 mg Documented by: Dextrose (D50w (25gm) Syringe) 50 ml IV PRN PRN PRN Reason: Hypoglycemia Enoxaparin Sodium (Lovenox) 30 mg SUB-Q QDAY@2200 [facility] Gabapentin (Neurontin) 300 mg PO Q8HR [facility] Last Admin: 10/15/18 13:12 Dose: 300 mg Documented by: Hydralazine HCl (Apresoline) 10 mg IV Q4HR PRN PRN Reason: Blood Pressure Hydromorphone HCl (Dilaudid) 0.5 mg IV Q3H PRN PRN Reason: Pain , Severe (7-10) Last Admin: 10/15/18 18:02 Dose: 0.5 mg Documented by: Sodium Chloride (Nacl 0.9% 1000 Ml) 1,000 mls @ 100 mls/hr IV DIRECT [facility] Last Admin: 10/15/18 05:11 Dose: 100 mls/hr Documented by: Insulin Human Regular (Humulin R) 0 units SUB-Q Q6HR [facility]; Protocol Last Admin: 10/15/18 17:44 Dose: Not Given Documented by: Morphine Sulfate (Morphine) 2 mg IV Q4H PRN PRN Reason: Pain, Moderate (4-6) Last Admin: 10/14/18 15:56 Dose: 2 mg Documented by: Nicotine (Habitrol) 14 mg TD QDAY [facility] Last Admin: 10/15/18 12:16 Dose: Not Given Documented by: Nitroglycerin (Nitrostat) 0.4 mg SL Q5M PRN PRN Reason: Chest Pain Nitroglycerin (Nitro-Bid 2%) 0.5 inch TP QIDNTG [facility]; Protocol Last Admin: 10/15/18 18:02 Dose: 0.5 inch Documented by: Ondansetron HCl (Zofran) 4 mg IV Q8H PRN PRN Reason: Nausea And Vomiting Sodium Chloride (Sodium Chloride Flush Syringe 10 Ml) 10 ml IV BID [facility] Last Admin: 10/15/18 12:16 Dose: 10 ml Documented by: Sodium Chloride (Sodium Chloride Flush Syringe 10 Ml) 10 ml IV PRN PRN PRN Reason: LINE FLUSH Review of Systems Cardiovascular: chest pain, no orthopnea, no palpitations, no rapid/irregular heart beat, no edema, no syncope, no lightheadedness, no shortness of breath Physical Examination Vital Signs Temp Pulse Resp BP Pulse Ox 98.0 F 99 H 18 155/119 100 10/13/18 19:29 10/13/18 19:29 10/13/18 19:29 10/13/18 19:29 10/13/18 19:29 General appearance: no acute distress HEENT: Positive: PERRL Neck: Positive: neck supple Cardiac: Positive: Reg Rate and Rhythm Lungs: Positive: Decreased Breath Sounds Neuro: Positive: Grossly Intact Abdomen: Positive: Soft Male genitourinary: Positive: deferred Skin: Positive: Clear Extremities: Absent: edema Results 10/15/18 05:17 10/15/18 05:17 CBC 10/15/18 Range/Units 05:17 WBC 6.0 (4.5-11.0) K/mm3 RBC 3.16 L (3.65-5.03) M/mm3 Hgb 9.6 L (11.8-15.2) gm/dl Hct 29.1 L (35.5-45.6) % Plt Count 326 (140-440) K/mm3 Comprehensive Metabolic Panel 10/15/18 Range/Units 05:17 Sodium 134 L (137-145) mmol/L Potassium 4.1 (3.6-5.0) mmol/L Chloride 97.4 L (98-107) mmol/L Carbon Dioxide 22 (22-30) mmol/L BUN 30 H (9-20) mg/dL Creatinine 1.9 H (0.8-1.5) mg/dL Glucose 127 H (75-100) mg/dL Calcium 9.2 (8.4-10.2) mg/dL EKG interpretations - Telemetry EKG Rhythm: Sinus Rhythm Assessment and Plan - Patient Problems (1) Atypical chest pain Current Visit: Yes Status: Acute Plan to address problem: Chest pain evaluation in progress. Lexiscan thallium has been completed, results pending.
[2018-10-15] MEDS ORDERED: LOVENOX SUB-Q SCH (22:00)
[2018-10-16] MEDS: NACL 0.9% 1000 ML 1,000 ML IV SCH (00:51)
[2018-10-16] MEDS: HumuLIN R SUB-Q SCH ×3 (00:52→13:24)
--- NOTE | 2018-10-16 01:32 | Treadmill Report ---
THALLIUM STRESS TEST LEFT VENTRICLE: Left ventricular chamber size is within normal spread. Perfusion study demonstrates fairly homogeneous uptake of the tracer in all segments, no significant defects identified. Mild diaphragmatic attenuation artifact is noted. Gated analysis suggests very mild left ventricular systolic dysfunction with ejection fraction calculated at 48%. CONCLUSION: No demonstrable ischemia on thallium perfusion imaging. Recommend clinical correlation and echocardiographic reassessment of left ventricular systolic function. [facility]# [id number] CA/NTS
[2018-10-16] MEDS: NITRO-BID 2% TP SCH ×3 (05:20→13:28)
[2018-10-16] MEDS: NEURONTIN PO SCH ×2 (05:20→13:27)
[2018-10-16 05:59] LABS: Hematocrit 25.8 % (35.5-45.6); Hemoglobin 8.4 gm/dl (11.8-15.2); Mean Corpuscular HGB Conc 33 % (32-34); Mean Corpuscular Volume 93 fl (84-94); Platelet Count 286 K/mm3 (140-440); Red Blood Count 2.77 M/mm3 (3.65-5.03); Red Cell Distribution Width 17.5 % (13.2-15.2)
[2018-10-16 06:21] LABS: Calcium 8.9 mg/dL (8.4-10.2)
[2018-10-16] MEDS: DILAUDID IV PRN ×2 (09:35→13:23)
[2018-10-16] MEDS: BABY ASPIRIN PO SCH (09:36)
[2018-10-16] MEDS: HABITROL TD SCH (09:36)
[2018-10-16] MEDS: SODIUM CHLORIDE FLUSH SYRINGE 10 ML IV SCH (09:37)
[2018-10-16] MEDS: NORVASC PO SCH (09:37)
--- NOTE | 2018-10-16 11:03 | Progress Note ---
Assessment and Plan Acute Kidney Injury possibly prerenal on underlying CKD, r/o obstruction: - Renal function reviewed, SCr level was 1.8 today, yesterday's SCr level was 1.9 - Exact SCr baseline unknown - Possible underlying CKD due to DM and HTN - On 0.9% NS infusion at 100 ml/hr - Urine lytes/protein reviewed. - Renal US- no obstruction - Renally dose medications - Xiong Catheter: No - Continue to monitor renal function Chest Pain: - On ASA and Atatin - Echo and lexiscan- report pending - Cardiology on board Essential Hypertension: - Blood pressure stable on current regimen - Adjust medications as needed Anemia: - Monitor H/H - Iron low, refuses Ferrous Sulfate Diabetes Mellitus Type 2 diet controlled: - On SSI - As per primary team S/p Orthopedic surgery for LLE fracture with external fixator - Pt states having left lower extremity external fixator surgery about 3 months ago at [facility] and was scheduled to have external fixator removed on 10/14/18 - As per primary - Follow up with Ortho as scheduled upon discharge Subjective Date of service: 10/16/18 Principal diagnosis: acute renal failure Interval history: Patient seen lying in bed. Reviewed renal labs. Objective - Vital Signs Vital signs: Vital Signs - 12hr 10/15/18 10/16/18 10/16/18 23:30 03:48 04:00 Temperature 98.3 F 98.6 F Pulse Rate 85 77 78 Respiratory 18 18 Rate Blood Pressure 146/76 130/78 O2 Sat by Pulse 98 99 Oximetry 10/16/18 09:34 Temperature 98.1 F Pulse Rate 82 Respiratory 16 Rate Blood Pressure 119/67 O2 Sat by Pulse 98 Oximetry - General Appearance General appearance: well-developed, appears stated age, fatigue EENT: ATNC, PERRL, hearing intact, vision intact Neck: no JVD, supple Respiratory: Present: Decreased Breath Sounds Cardiology: S1S2 Gastrointestinal: normoactive bowel sounds Integumentary: warm and dry Neurologic: alert and oriented x3 Musculoskeletal: other (Left lower extremity with external fixator in place; no edema to RLE)) - Lab 10/16/18 05:17 10/16/18 05:17 Most recent lab results Calcium 8.9 mg/dL (8.4-10.2) 10/16/18 05:17 Phosphorus 3.70 mg/dL (2.5-4.5) 10/15/18 05:17 113.1 mg/dL (0.1-20.0) H 10/15/18 Unknown 29 mmol/L 10/15/18 Unknown 34 mg/dL (5-11.8) H 10/15/18 Unknown Medications & Allergies - Medications Allergies/Adverse Reactions: Allergies sulfamethoxazole [From Bactrim] Allergy (Verified 10/13/18 19:30) Itching trimethoprim [From Bactrim] Allergy (Verified 10/13/18 19:30) Itching Home Medications: Home Medications Medication Instructions Recorded Confirmed Last Taken Type Gabapentin [Neurontin] 300 mg PO Q8HR 10/14/18 10/14/18 Unknown History amLODIPine [Norvasc] 10 mg PO DAILY 10/14/18 10/14/18 Unknown History Active Medications: Generic Name Dose Route Start Last Admin Trade Name Freq PRN Reason Stop Dose Admin Acetaminophen 650 mg 10/13/18 23:07 Tylenol PO Q4H PRN Pain MILD(1-3)/Fever >100.5/CHAPMAN Albuterol 2.5 mg 10/13/18 23:05 Proventil IH Q4HRT PRN Shortness Of Breath Amlodipine Besylate 10 mg 10/14/18 10:00 10/16/18 09:37 Norvasc PO 10 mg QDAY ANGELIKA Administration Aspirin 81 mg 10/14/18 10:00 10/16/18 09:36 Baby Aspirin PO 81 mg QDAY ANGELIKA Administration Atorvastatin Calcium 40 mg 10/14/18 22:00 10/15/18 21:25 Lipitor PO 40 mg QHS ANGELIKA Administration Dextrose 50 ml 10/13/18 23:07 D50w (25gm) Syringe IV PRN PRN Hypoglycemia Enoxaparin Sodium 30 mg 10/15/18 22:00 10/15/18 21:25 Lovenox SUB-Q 30 mg QDAY@2200 ANGELIKA Administration Gabapentin 300 mg 10/14/18 22:00 10/16/18 05:20 Neurontin PO 300 mg Q8HR ANGELIKA Administration Hydralazine HCl 10 mg 10/13/18 23:47 Apresoline IV Q4HR PRN Blood Pressure Hydromorphone HCl 0.5 mg 10/13/18 23:05 10/16/18 09:35 Dilaudid IV 0.5 mg Q3H PRN Administration Pain , Severe (7-10) Sodium Chloride 1,000 mls @ 100 mls/hr 10/13/18 23:45 10/16/18 00:51 Nacl 0.9% 1000 Ml IV 100 mls/hr DIRECT ANGELIKA Administration Insulin Human Regular 0 units 10/14/18 00:00 10/16/18 05:26 Humulin R SUB-Q Not Given Q6HR [facility] Protocol Morphine Sulfate 2 mg 10/13/18 23:05 10/14/18 15:56 Morphine IV 2 mg Q4H PRN Administration Pain, Moderate (4-6) Nicotine 14 mg 10/14/18 10:00 10/16/18 09:36 Habitrol TD Not Given QDAY [facility] Nitroglycerin 0.4 mg 10/13/18 23:09 Nitrostat SL Q5M PRN Chest Pain Nitroglycerin 0.5 inch 10/14/18 06:00 10/16/18 09:36 Nitro-Bid 2% TP 0.5 inch QIDNTG ANGELIKA Administration Protocol Ondansetron HCl 4 mg 10/13/18 23:05 Zofran IV Q8H PRN Nausea And Vomiting Sodium Chloride 10 ml 10/14/18 10:00 10/16/18 09:37 Sodium Chloride Flush Syringe 10 Ml IV 10 ml BID ANGELIKA Administration Sodium Chloride 10 ml 10/13/18 23:07 Sodium Chloride Flush Syringe 10 Ml IV PRN PRN LINE FLUSH
--- NOTE | 2018-10-16 12:41 | Progress Note ---
<ANNA MOORE - Last Filed: 10/16/18 12:39> Assessment and Plan Atypical chest pain Hypertension Chronic kidney disease Echocardiogram showed well-preserved left ventricular systolic function, ejection fraction 55%. Thallium stress test reports no ischemia. No further cardiac workup indicated. We will sign off. Subjective Date of service: 10/16/18 Principal diagnosis: acute renal failure Interval history: Patient denies chest pain and shortness of breath. Objective Vital Signs Temp Pulse Resp BP Pulse Ox 10/16/18 09:34 98.1 F 82 16 119/67 98 10/16/18 04:00 78 10/16/18 03:48 98.6 F 77 18 130/78 99 10/15/18 23:30 98.3 F 85 18 146/76 98 10/15/18 19:50 98.9 F 86 20 119/77 97 10/15/18 18:02 80 114/68 10/15/18 17:14 98.7 F 80 14 114/68 98 10/15/18 14:00 18 10/15/18 13:12 92 H 133/77 - Physical Examination General: No Apparent Distress HEENT: Positive: PERRL Neck: Positive: trachea midline Cardiac: Positive: Reg Rate and Rhythm Lungs: Positive: Decreased Breath Sounds Neuro: Positive: Grossly Intact Abdomen: Positive: Soft Extremities: Absent: edema - Labs and Meds CBC 10/16/18 Range/Units 05:17 WBC 5.2 (4.5-11.0) K/mm3 RBC 2.77 L (3.65-5.03) M/mm3 Hgb 8.4 L (11.8-15.2) gm/dl Hct 25.8 L (35.5-45.6) % Plt Count 286 (140-440) K/mm3 Comprehensive Metabolic Panel 10/16/18 Range/Units 05:17 Sodium 138 (137-145) mmol/L Potassium 4.0 (3.6-5.0) mmol/L Chloride 104.6 (98-107) mmol/L Carbon Dioxide 24 (22-30) mmol/L BUN 29 H (9-20) mg/dL Creatinine 1.8 H (0.8-1.5) mg/dL Glucose 139 H (75-100) mg/dL Calcium 8.9 (8.4-10.2) mg/dL <DREW SCHAFFER - Last Filed: 10/23/18 11:43> Assessment and Plan I've seen and evaluated the patient and agree with this plan. Patient's echo shows normal systolic function. Patient's thallium stress test is negative for reversible ischemia. No further cardiac workup at this time. Thank you for the consultation no further cardiac recommendations.
--- NOTE | 2018-10-16 13:24 | Discharge Summary ---
Providers - Providers Date of Admission: 10/13/18 23:05 Date of discharge: 10/16/18 Attending physician: GISELLE OTERO 10/13/18 23:05 Consult to Physician [CONS] Routine Comment: Consulting Provider: GENE SIMS Physician Instructions: Reason For Exam: devi hx CKD 10/13/18 23:08 Consult to Dietitian/Nutrition [CONS] Routine Physician Instructions: Reason For Exam: Reason for Consult: Diet education 10/14/18 17:29 Consult to Physician [CONS] Routine Comment: Consulting Provider: SHYAM ARGUELLES Physician Instructions: Reason For Exam: Chest pain/abnormal EKG Primary care physician: HARINI SCOTT Hospitalization Reason for admission: left-sided chest pain Condition: Stable Pertinent studies: chest x-ray no acute abnormality noted. VQ scan low probability for PE Ejection fraction 50-55% moderate concentric LVH Renal ultrasound; bilateral increased echogenicity or T changes mild cortical thinning on the right Stress test :with no ischemia very mild left ventricular systolic dysfunction with EF of 48% Hospital course: 68-year-old -[place] male who is a current tobacco pipe smoker with history of hypertension, diabetes, chronic kidney disease, left lower leg fracture s/p external fixator presents [facility] ED with complaints of left shoulder pain that radiates to left chest and left lower extremity. . Patient states that he usually gets all his care at [facility], and was scheduled to have his external fixator removed tomorrow. Patient was admitted for left-sided chest pain symptomatically managed Underwent stress test which was negative for reversible ischemia echocardiogram within normal limits Patient also had elevated D dimers VQ scan negative lower extremity venous Doppler negative for DVT Recent symptoms significantly improved cardiology cleared for discharge Patient is stable at discharge Discharge diagnosis; --Chest pain; s/p stress test pending report Serial cardiac enzymes, continue current cardiac medications Echocardiogram, 50-55%, Cardiology following --Negative VQ scan for PE, negative DVT --Acute kidney injury; vasomotor nephropathy Gentle hydration, monitor renal function, avoid nephrotoxins Nephrology evaluation --Hypertension; moderate control Continue current antihypertensives, when necessary medications --Type 2 diabetes mellitus; Accu-Chek sliding scale coverage and ADA diet Insulin as needed, check hemoglobin A1c --Diabetic neuropathy; supportive care Gabapentin --Ongoing tobacco use; smoking cessation counseling Nicotine patch as needed --History of left lower extremity fracture;s/p surgery Supportive care, patient will follow up with his orthopedic surgeon Upon discharge Patient is stable for discharge Cleared by cardiology Disposition: DC-01 TO HOME OR SELFCARE Time spent for discharge: 32 min Core Measure Documentation - Palliative Care Palliative Care/ Comfort Measures: Not Applicable - Core Measures Any of the following diagnoses?: none Exam - Constitutional Vitals: Temp Pulse Resp BP Pulse Ox 98.1 F 82 16 119/67 98 10/16/18 09:34 10/16/18 09:34 10/16/18 09:34 10/16/18 09:34 10/16/18 09:34 General appearance: Present: no acute distress, well-nourished - EENT Eyes: Present: PERRL, EOM intact - Neck Neck: Present: supple, normal ROM - Respiratory Respiratory effort: normal - Cardiovascular Rhythm: regular - Extremities Extremities: no ischemia, No edema - Abdominal General gastrointestinal: Present: soft, non-tender, non-distended, normal bowel sounds - Integumentary Integumentary: Present: clear, warm - Musculoskeletal Musculoskeletal: strength equal bilaterally, generalized weakness - Psychiatric Psychiatric: appropriate mood/affect - Neurologic Neurologic: CNII-XII intact, moves all extremities Plan Activity: advance as tolerated Diet: diabetic Special Instructions: smoking cessation Additional Instructions: Advised to see private orthopedic surgeon per schedule. If you have chest pain or shortness of breath contact M.D. or go to emergency room as needed. Smoking cessation advised, nicotine patch as needed Follow up with: NOY [facility]LY [facility] MD TOMMY [Referring] - 3-5 Days LIVE SUAZO MD [Staff Physician] - 7 Days AMY KAUFMAN MD [Staff Physician] - 7 Days Prescriptions: Aspirin [Aspirin BABY CHEW TAB] 81 mg PO QDAY #30 tab.chew Nicotine [Habitrol] 14 mg TD QDAY #30 patch AtorvaSTATin [Lipitor] 40 mg PO QHS #30 tablet Gabapentin [Neurontin] 300 mg PO Q8HR #90 capsule amLODIPine [Norvasc] 10 mg PO DAILY #30 tablet
[2018-10-16 14:20] VITALS: BP 134/76
== END 2018-10-16 14:10 | disposition home or self-care (01) ==
LOC: ED 19:24 → 4A 23:05
PROVIDERS: ADMIT Internal Medicine; ATTEND Internal Medicine
DX: R07.89 Other chest pain (principal); I12.9 Hypertensive chronic kidney disease with stage 1 through stage 4 chronic kidney disease, or unspecified chronic kidney disease; E11.22 Type 2 diabetes mellitus with diabetic chronic kidney disease; N18.9 Chronic kidney disease, unspecified; N17.9 Acute kidney failure, unspecified; D64.9 Anemia, unspecified; E11.40 Type 2 diabetes mellitus with diabetic neuropathy, unspecified; F17.200 Nicotine dependence, unspecified, uncomplicated; Z79.899 Other long term (current) drug therapy; Z88.2 Allergy status to sulfonamides
CPT/HCPCS: 36415; 71045; 76770; 78452; 78582; 80048; 80053; 80307; 81001; 82043; 82728; 82962; 83036; 83550; 83970; 84100; 84156; 84300; 84466; 84484; 85025; 85027; 87116; 93005; 93010; 93017; 93306; 96361; 96372; 96374; 96375; 96376; 99291; 99406; A9270; A9502; A9540; A9558; G0378; J1170; J1650; J2270; J2405; J2785; J7030; J1815

== ENCOUNTER 2021-03-15 17:48 | Emergency (ER) | payer MEDICARE ==
[2021-03-15] MEDS ORDERED: HYDROcodone/ACETAMINOPHEN 5-325 MG TAB PO ONE (20:22)
--- NOTE | 2021-03-15 20:44 | Emergency Department Report ---
ED Back Pain/Injury HPI - General Chief Complaint: Back Pain/Injury Stated Complaint: back pain Time Seen by Provider: 03/15/21 20:22 Source: patient, EMS Limitations: No Limitations - History of Present Illness Initial Comments: Patient 70-year-old male who presents for low back pain radiating to right lower extremity x3 days patient denies fall injury or trauma. No numbness tingling no paralysis no loss or decrease in bowel or bladder function / patient describes pain as 7/10 burning aching. Pain is relieved by nothing tried pain is exacerbated by bending twisting. Patient has history of hypertension, diabetes type 2, he is a left BKA patient arrived via ambulance however patient is amatory to baseline per patient. MD Complaint: back pain - Related Data Previous Rx's Medication Instructions Recorded Last Taken Type Aspirin [Aspirin BABY CHEW TAB] 81 mg PO QDAY #30 tab.chew 10/16/18 Unknown Rx AtorvaSTATin [Lipitor] 40 mg PO QHS #30 tablet 10/16/18 Unknown Rx Gabapentin 300 mg PO Q8HR #90 capsule 10/16/18 Unknown Rx Nicotine [Habitrol] 14 mg TD QDAY #30 patch 10/16/18 Unknown Rx amLODIPine 10 mg PO DAILY #30 tablet 10/16/18 Unknown Rx Acetaminophen [Acetaminophen ER 650 mg PO Q8HR PRN #30 tablet.er 03/15/21 Unknown Rx TAB] Capsaicin 0.075% [Zostrix Hp 1 applicatio TP TID PRN #1 tube 03/15/21 Unknown Rx 0.075%] Cyclobenzaprine [Flexeril] 10 mg PO BID PRN #10 tablet 03/15/21 Unknown Rx Allergies Allergy/AdvReac Type Severity Reaction Status Date / Time sulfamethoxazole Allergy Itching Verified 10/13/18 19:30 [From Bactrim] trimethoprim [From Bactrim] Allergy Itching Verified 10/13/18 19:30 ED Review of Systems ROS: Stated complaint: back pain Other details as noted in HPI Constitutional: denies: chills, fever Eyes: denies: eye pain, eye discharge, vision change ENT: denies: ear pain, throat pain Respiratory: denies: cough, shortness of breath, wheezing Cardiovascular: denies: chest pain, palpitations Endocrine: no symptoms reported Gastrointestinal: denies: abdominal pain, nausea, vomiting, diarrhea Genitourinary: denies: urgency, dysuria, frequency, hematuria, discharge Musculoskeletal: back pain, arthralgia, myalgia Skin: denies: rash, lesions Neurological: denies: headache, weakness, paresthesias Psychiatric: as per HPI Hematological/Lymphatic: denies: easy bleeding, easy bruising ED Past Medical Hx - Past Medical History Previous Medical History?: Yes Hx Hypertension: Yes Hx Diabetes: Yes Hx Renal Disease: Yes Additional medical history: LEFT BKA - Surgical History Additional Surgical History: left lower leg, neck - Social History Smoking Status: Current Every Day Smoker - Medications Home Medications: Home Medications Medication Instructions Recorded Confirmed Last Taken Type Aspirin [Aspirin BABY CHEW TAB] 81 mg PO QDAY #30 tab.chew 10/16/18 Unknown Rx AtorvaSTATin [Lipitor] 40 mg PO QHS #30 tablet 10/16/18 Unknown Rx Gabapentin 300 mg PO Q8HR #90 capsule 10/16/18 Unknown Rx Nicotine [Habitrol] 14 mg TD QDAY #30 patch 10/16/18 Unknown Rx amLODIPine 10 mg PO DAILY #30 tablet 10/16/18 Unknown Rx Acetaminophen [Acetaminophen ER 650 mg PO Q8HR PRN #30 tablet.er 03/15/21 Unknown Rx TAB] Capsaicin 0.075% [Zostrix Hp 1 applicatio TP TID PRN #1 tube 03/15/21 Unknown Rx 0.075%] Cyclobenzaprine [Flexeril] 10 mg PO BID PRN #10 tablet 03/15/21 Unknown Rx ED Physical Exam - General Limitations: No Limitations General appearance: alert, in no apparent distress - Head Head exam: Present: normocephalic, normal inspection - Eye Eye exam: Present: normal appearance, EOMI Pupils: Present: normal accommodation - ENT ENT exam: Present: mucous membranes moist - Neck Neck exam: Present: normal inspection, full ROM. Absent: tenderness, meningismus - Respiratory Respiratory exam: Present: normal lung sounds bilaterally. Absent: respiratory distress, wheezes, stridor, chest wall tenderness - Cardiovascular Cardiovascular Exam: Present: regular rate, normal rhythm, normal heart sounds. Absent: systolic murmur, diastolic murmur, rubs, gallop - GI/Abdominal GI/Abdominal exam: Present: soft, normal bowel sounds. Absent: distended, tenderness, guarding, rebound, rigid, bruit, hernia - Rectal Rectal exam: Present: deferred - Extremities Exam Extremities exam: Present: full ROM - Back Exam Back exam: Present: normal inspection, full ROM, muscle spasm, paraspinal tenderness. Absent: CVA tenderness (R), CVA tenderness (L), vertebral tenderness - Expanded Back Exam Expanded Back exam: Absent: saddle anesthesia Back exam: Positive Straight Leg Raise: Left, Right - Neurological Exam Neurological exam: Present: alert, oriented X3, normal gait - Psychiatric Psychiatric exam: Present: normal affect, normal mood - Skin Skin exam: Present: warm, dry, intact, normal color. Absent: rash ED Course Vital Signs 03/15/21 17:51 Temperature 99.1 F Pulse Rate 80 Respiratory 16 Rate Blood Pressure 186/112 [Left] O2 Sat by Pulse 99 Oximetry ED Medical Decision Making - Lab Data Labs 03/15/21 21:13 Urine Color Yellow Urine Turbidity Clear Urine pH 5.0 Ur Specific [place] 1.011 Urine Protein 100 mg/dl Urine Glucose (UA) Neg Urine Ketones Neg Urine Blood Sm Urine Nitrite Neg Urine Bilirubin Neg Urine Urobilinogen < 2.0 Ur Leukocyte Esterase Neg Urine WBC (Auto) 1.0 Urine RBC (Auto) < 1.0 U Epithel Cells (Auto) 1.0 Urine Mucus Few - Radiology Data Radiology results: report reviewed, image reviewed LUMBAR SPINE 3 VIEWS INDICATION / CLINICAL INFORMATION: low back pain. COMPARISON: None available. FINDINGS: VERTEBRAE: No acute fracture. No significant malalignment. DISC SPACES / FACET JOINTS:No significant abnormality. PARASPINAL SOFT TISSUES:No significant abnormality. ADDITIONAL FINDINGS: None. Signer Name: Franki Brown MD Signed: 03/15/2021 9:02 PM Workstation Name: [id number] Transcribed By: SB Dictated By: FRANKI BROWN MD Electronically Authenticated By: FRANKI BROWN MD Signed Date/Time: 03/15/212101 - Medical Decision Making UA normal, lumbar x-rays normal no fracture no soft tissue abnormality this is consistent with exam this is a low back strain. Plan DC to home, Tylenol arthritis analgesic balm, follow-up with your primary care doctor in 2 to 3 days. Return to emergency department should symptoms worsen. Patient verbalized agreement understanding with discharge plan. Patient DC'd home in stable condition at this time. Pain is 2/10 and improved at this time. Critical care attestation.: If time is entered above; I have spent that time in minutes in the direct care of this critically ill patient, excluding procedure time. ED Disposition Clinical Impression: Low back strain Qualifiers: Encounter type: initial encounter Qualified Code(s): S39.012A - Strain of muscle, fascia and tendon of lower back, initial encounter Disposition: HOME / SELF CARE / HOMELESS Is pt being admited?: No Does the pt Need Aspirin: No Condition: Stable Instructions: Low Back Sprain or Strain Rehab-SportsMed, Back Injury Prevention Additional Instructions: Take all medications as prescribed, follow-up with your doctor in 2 to 3 days. Return to emergency department should symptoms worsen. Prescriptions: Acetaminophen [Acetaminophen ER TAB] 650 mg PO Q8HR PRN #30 tablet.er PRN Reason: Pain Cyclobenzaprine [Flexeril] 10 mg PO BID PRN #10 tablet PRN Reason: Muscle Spasm Capsaicin 0.075% [Zostrix Hp 0.075%] 1 applicatio TP TID PRN #1 tube PRN Reason: pain Referrals: ARIAS CASAS MD [Staff Physician] - 3-5 Days Time of Disposition: 23:05
--- NOTE | 2021-03-15 21:07 | XRay Report ---
LUMBAR SPINE 3 VIEWS INDICATION / CLINICAL INFORMATION: low back pain. COMPARISON: None available. FINDINGS: VERTEBRAE: No acute fracture. No significant malalignment. DISC SPACES / FACET JOINTS:No significant abnormality. PARASPINAL SOFT TISSUES:No significant abnormality. ADDITIONAL FINDINGS: None. Signer Name: Franki Rodriguez MD Signed: 03/15/2021 9:02 PM Workstation Name: [id number]
[2021-03-15 21:34] LABS: Bilirubin,Urine NEG (Negative); Blood,Urine SM (Negative); Color,Urine Yellow (Yellow); Mucus,Urine FEW /HPF; Urobilinogen,Urine < 2.0 mg/dL (<2.0)
[2021-03-15 21:36] LABS: RBC,Urine < 1.0 /HPF (0.0-6.0)
[2021-03-16] MEDS ORDERED: KETOROLAC 30 MG/1 ML INJ IM ONE
[2021-03-16 01:13] VITALS: BP 160/90
== END 2021-03-16 00:06 | disposition home or self-care (01) ==
LOC: ED 17:48
DX: S39.012A Strain of muscle, fascia and tendon of lower back, initial encounter (principal); I10 Essential (primary) hypertension; E11.9 Type 2 diabetes mellitus without complications; Z98.890 Other specified postprocedural states; Z88.8 Allergy status to other drugs, medicaments and biological substances; Z88.2 Allergy status to sulfonamides; Z79.82 Long term (current) use of aspirin; X58.XXXA Exposure to other specified factors, initial encounter; Y93.89 Activity, other specified; Y92.89 Other specified places as the place of occurrence of the external cause; Y99.8 Other external cause status
CPT/HCPCS: 72100; 81001; 96372; 99284; J1885